=== PATIENT | female | born 1950 | race Caucasian/White ===

== ENCOUNTER 2022-01-03 08:10 | Outpatient (CLI) | payer BC, SELFPAY ==
[2022-01-03 09:47] LABS: SARS-CoV-2 RNA PCR Negative (Negative)
== END 2022-01-03 08:11 | disposition home or self-care (01) ==
LOC: CHSLAB 08:20
DX: Z20.822 Contact with and (suspected) exposure to COVID-19 (principal)
CPT/HCPCS: C9803; U0003; U0005

== ENCOUNTER 2022-11-09 07:35 | Outpatient (CLI) | payer BC, SELFPAY ==
[2022-11-09 08:05] LABS: Basophils Absolute Auto 0.05 K/mm3 (0.00-0.10); Basophils Percent Auto 0.8 % (0.0-1.0); Eosinophils Absolute Auto 0.18 K/mm3 (0.02-0.50); Hematocrit 41.3 % (35.0-42.0); Hemoglobin 13.3 g/dL (11.7-13.8); Immature Granulocyte Absolute 0.01 K/mm3 (0.00-0.00); Immature Granulocyte Percent A 0.2 % (0.0-0.0); Lymphocytes Absolute Auto 1.62 K/mm3 (1.10-4.50); Mean Corpuscular HGB Conc 32.2 g/dL (32.0-36.0); Mean Corpuscular Hemoglobin 31.8 pg (27.0-31.0); Mean Corpuscular Volume 98.8 fL (78.0-102.0); Mean Platelet Volume 9.4 fl (9.2-11.8); Monocytes Absolute Auto 0.54 K/mm3 (0.10-0.90); Neutrophils Absolute Auto 3.6 K/mm3 (1.7-7.2); Platelet Count Result 310 K/mm3 (150-420); Red Blood Count 4.18 M/mm3 (4.20-5.40); Red Cell Distribution Width 12.1 % (11.6-14.4)
[2022-11-09 08:13] LABS: Hemoglobin A1C 5.5 % (<5.7)
[2022-11-09 09:02] LABS: Alanine Aminotransferase 29 U/L (14-59); Albumin Level 3.8 g/dL (3.4-5.0); Alkaline Phosphatase 88 U/L (46-116); Anion Gap 7 mmol/L (8-16); Aspartate Amino Transferase 18 U/L (15-37); Bilirubin,Total 0.3 mg/dL (0.00-1.00); Blood Urea Nitrogen 19 mg/dL (7-18); Calcium 9.6 mg/dL (8.5-10.1); Carbon Dioxide 32 mmol/L (21-32); Chloride 107 mmol/L (98-108); Cholesterol 254 mg/dL (0-200); Estimated Glomerular Filt Rate 59; Glucose 91 mg/dL (70-99); HDL Direct 81 mg/dL (40-60); LDL Cholesterol Calculated 159 mg/dL (<130); Osmolality Calculated 304 mOsm/kg (285-295); Potassium 4.5 mmol/L (3.5-5.1); Sodium 146 mmol/L (136-145); Total Protein 6.9 g/dL (6.4-8.2); Triglycerides 72 mg/dL (0-150)
[2022-11-09 09:10] LABS: Thyroid Stimulating Hormone Reflex 1.67 u/IU/mL (0.36-3.74)
[2022-11-14 16:19] LABS: Vitamin D 25 Hydroxy 43 ng/mL (30-100)
== END 2022-11-09 07:36 | disposition home or self-care (01) ==
LOC: CHSLAB 07:41
DX: Z00.00 Encounter for general adult medical examination without abnormal findings (principal); E78.5 Hyperlipidemia, unspecified; Z12.11 Encounter for screening for malignant neoplasm of colon; Z12.39 Encounter for other screening for malignant neoplasm of breast; Z78.0 Asymptomatic menopausal state
CPT/HCPCS: 36415; 80053; 80061; 82306; 83036; 84443; 85025

== ENCOUNTER 2023-06-02 07:04 | Outpatient (CLI) | payer BC, SELFPAY ==
[2023-06-02 08:10] LABS: Alanine Aminotransferase 29 U/L (14-59); Albumin Level 3.5 g/dL (3.4-5.0); Alkaline Phosphatase 80 U/L (46-116); Anion Gap 8 mmol/L (8-16); Aspartate Amino Transferase 16 U/L (15-37); Bilirubin,Total 0.5 mg/dL (0.00-1.00); Blood Urea Nitrogen 18 mg/dL (7-18); Calcium 8.9 mg/dL (8.5-10.1); Carbon Dioxide 32 mmol/L (21-32); Chloride 105 mmol/L (98-108); Cholesterol 176 mg/dL (0-200); Estimated Glomerular Filt Rate 59; Glucose 94 mg/dL (70-99); HDL Direct 82 mg/dL (40-60); LDL Cholesterol Calculated 82 mg/dL (<130); Osmolality Calculated 301 mOsm/kg (285-295); Sodium 145 mmol/L (136-145); Total Protein 6.3 g/dL (6.4-8.2); Triglycerides 62 mg/dL (0-150)
== END 2023-06-02 07:05 | disposition home or self-care (01) ==
LOC: CHSLAB 07:11
DX: E78.5 Hyperlipidemia, unspecified (principal)
CPT/HCPCS: 36415; 80053; 80061

== ENCOUNTER 2024-04-02 16:32 | Emergency (ER) | payer BC, SELFPAY ==
--- NOTE | ~2024-04-02 | XR_ITS ---
EXAMINATION: [id number] DATE: 04/02/2024 17:05 INDICATION: Left anterolateral left rib pain post fall TECHNIQUE: PA view of the chest and frontal and oblique views of the left ribs were obtained. COMPARISON: None FINDINGS: No rib fractures identified. Lungs are clear with no focal airspace opacities, pulmonary edema, pleur al effusion or pneumothorax. Cardiomediastinal silhouette is normal. Mild to moderate thoracic spondy losis. IMPRESSION: 1. No rib fracture or acute cardiopulmonary disease. Reviewed, dictated and finalized at location A. [facility] [employer]
[2024-04-02 16:42] VITALS: BP 118/86; PULSE 63; RESP 16; TEMP 36.6; O2SAT 100
--- NOTE | 2024-04-02 17:38 | ED_ITS ---
HPI - General Adult General Chief complaint: Unspecified Stated complaint: Rib Pain Time Seen by Provider: 04/02/24 16:50 Source: patient Mode of arrival: ambulatory Limitations: no limitations History of Present Illness HPI narrative: 73-year-old female presents with complaint of pain to left rib cage. Patient states that she was walking at our taking and tripped over an or cane game. Fell onto left ribcage. Did not hit head. Concern for rib fracture. No shortness of breath. All systems reviewed and negative except as noted above. Related Data Home Medications Medication Instructions Recorded Confirmed atorvastatin 10 mg tablet 10 mg PO DAILY 04/02/24 04/02/24 Allergies Allergy/AdvReac Type Severity Reaction Status Date / Time No Known Allergies Allergy Verified 04/02/24 16:49 Review of Systems Review of Systems: CONSTITUTIONAL: Denies fever, chills, or sweats. EYES: Denies visual changes, redness, or discharge. ENT: Denies rhinorrhea, congestion, sore throat, or otalgia. CARDIOVASCULAR: Denies chest pain, palpitations, or edema. RESPIRATORY: Denies cough or dyspnea. GASTROINTESTINAL: Denies abdominal pain, nausea, vomiting, or diarrhea. GENITOURINARY: Denies dysuria or hematuria. SKIN: Denies rash or itching. MUSCULOSKELETAL: Denies back pain, joint pain, or myalgia. Reports pain to left ribs NEUROLOGIC: Denies headache, numbness, or weakness. PSYCHIATRIC: Denies anxiety or depression. All other systems reviewed are negative, except as documented in HPI. PMFSH Comments At time of signature, agree with nursing past medical, surgical, social and family history. There is no relevant family history pertinent to the presenting complaint. Exam Narrative: GENERAL: This is a well-nourished, well-developed patient, in no apparent distress. HEAD: normocephalic, atraumatic. EYES: PERRL. Sclera clear/white. Vision is grossly intact. EARS: External ears normal NOSE: External nose normal NECK: Neck supple, non-tender without lymphadenopathy, masses or thyromegaly. CARDIOVASCULAR: Regular rate and rhythm without murmurs, gallops, or rubs. RESPIRATORY: Clear to auscultation. Breath sounds equal bilaterally. No wheezes, rales, or rhonchi. SKIN: warm, Dry, intact with no suspicious lesions or rash, good texture and turgor. NEURO: awake, alert, and oriented to person, place and time. There were no obvious focal neurologic abnormalities. EXTREMITIES: No joint tenderness, effusion, or edema noted. Musculoskeletal: Tenderness to anterior-lateral aspect left ribs, tenderness to 5th and 6th rib Course Course Level of Care: Express Care Visit Vital Signs Vital signs: Vital Signs Temperature 36.6 C 04/02/24 16:42 Pulse Rate 63 04/02/24 16:42 Respiratory Rate 16 04/02/24 16:42 Blood Pressure 118/86 04/02/24 16:42 Pulse Oximetry 100 04/02/24 16:42 Temperature 36.6 C 04/02/24 16:42 Pulse Rate 63 04/02/24 16:42 Respiratory Rate 16 04/02/24 16:42 Blood Pressure 118/86 04/02/24 16:42 Pulse Oximetry 100 04/02/24 16:42 Reviewed Medical Decision Making MDM Narrative Medical decision making narrative: Discussed x-ray results with patient. Rib x-ray negative for fracture. Recommend ibuprofen or Tylenol. Ice. Follow-up with primary care physician as needed. Patient is aware of diagnosis, understands and agrees to treatment plan. Anticipatory guidance given. Patient agrees to follow-up as directed and is aware of reasons to seek care at the emergency department. Portions of this record may have been created with voice recognition software Vital Signs Vital Signs: Vital Signs Temperature 36.6 C 04/02/24 16:42 Pulse Rate 63 04/02/24 16:42 Respiratory Rate 16 04/02/24 16:42 Blood Pressure 118/86 04/02/24 16:42 Pulse Oximetry 100 04/02/24 16:42 Temperature 36.6 C 04/02/24 16:42 Pulse Rate 63 04/02/24 16:42 Respiratory Rate 16 04/02/24 16:42 Blood Pressure 118/86 04/02/24 16:42 Pulse Oximetry 100 04/02/24 16:42 Imaging Data My impression: Agree with radiologist Radiologist's impression: EXAMINATION: [id number] DATE: 04/02/2024 17:05 INDICATION: Left anterolateral left rib pain post fall TECHNIQUE: PA view of the chest and frontal and oblique views of the left ribs were obtained. COMPARISON: None FINDINGS: No rib fractures identified. Lungs are clear with no focal airspace opacities, pulmonary edema, pleural effusion or pneumothorax. Cardiomediastinal silhouette is normal. Mild to moderate thoracic spondylosis. IMPRESSION: 1. No rib fracture or acute cardiopulmonary disease. Discharge Plan Discharge Clinical Impression: Contusion of rib on left side Patient Disposition: Home, Self-Care Condition: Stable Instructions: Rib Contusion (ED) Additional Instructions: The x-ray of your left ribs was negative for fracture. Take Tylenol or ibuprofen every 6-8 hours as needed for pain. May apply ice as needed for pain. Follow-up with your primary care physician if pain is not improving in the next 3-4 weeks. Prescriptions: No Action atorvastatin 10 mg tablet 10 mg PO DAILY Follow-up/Referrals: PHYSICIAN,WILDLIFE ECOLOGIST [Primary Care Provider] - Time of Disposition: 17:38
== END 2024-04-02 17:41 | disposition home or self-care (01) ==
PROVIDERS: Emergency Provider Nurse Practitioner Family
DX: S20.212A Contusion of left front wall of thorax, initial encounter (principal); W19.XXXA Unspecified fall, initial encounter; E78.00 Pure hypercholesterolemia, unspecified
CPT/HCPCS: 71101; 99213; G0463